=== PATIENT | female | born 1985 | race African-American/Black ===

== ENCOUNTER 2017-07-15 05:25 | Day surgery (SDC) | payer MEDICARE, MEDICAID ==
[~2017-07-15] VITALS: Ht 172.7 cm; Wt 107.5 kg
[~2017-07-15 05:25] MED LIST: BENZ0.5T3 PO; MIRT15TA6 PO; OXCA300T31 PO; POTA10CA42 PO; RISP0.2514 PO; TRAZ-129 PO; XANAX; [UNRECOGNIZED DRUG - OTHER]
[2017-07-15] MEDS ORDERED: ARIP30TA2 INJ (05:54)
[2017-07-15] MEDS ORDERED: ARIP400S3 IM (05:55)
[2017-07-15] MEDS ORDERED: LACTATED RINGERS 1,000 ML IV SCH (06:00)
[2017-07-15 06:27] LABS: BASOPHILS % 0.1 % (0.0-2.0); EOSINOPHILS % 4.3 % (0.0-5.0); HEMATOCRIT. 34.3 % (36.0-48.0); HEMOGLOBIN. 11.7 g/dL (12.0-16.0); LYMPHOCYTES % 32.4 % (20.0-50.0); MEAN CORPUSCULAR HEMOGLOBIN 27.8 pg (28.0-32.0); MEAN CORPUSCULAR VOLUME 81.7 fL (81.0-99.0); MEAN PLATELET VOLUME 7.8 fl (7.4-10.4); NEUTROPHILS % 54.2 % (40.0-76.0); PLATELET 331 x1000/uL (130-400); RED BLOOD CELL COUNT 4.19 mill/uL (4.2-5.4)
[2017-07-15 06:30] LABS: CLARITY URINE CLEAR (CLEAR); COLOR URINE YELLOW (YELLOW); KETONES URINE NEGATIVE (NEGATIVE); LEUKOCYTE ESTERASE URINE NEGATIVE (NEGATIVE); NITRITE URINE NEGATIVE (NEGATIVE); OCCULT BLOOD URINE NEGATIVE (NEGATIVE); PROTEIN URINE NEGATIVE (NEGATIVE); SPECIFIC GRAVITY URINE 1.017 (1.005-1.030); UROBILINOGEN URINE 0.2 E.U./dL (0.2-1.0)
[2017-07-15 06:36] LABS: UCG SCREEN POSITIVE
[2017-07-15] MEDS ORDERED: GLYCOPYRROLATE 0.2 MG/ML 2ML VIAL ONE (07:43)
[2017-07-15] MEDS ORDERED: SUCCINYLCHOLINE CHLORIDE 200MG/10ML VIAL IV ONE (07:43)
[2017-07-15] MEDS ORDERED: MIDAZOLAM HCL 2 MG/2 ML VIAL ONE (07:43)
[2017-07-15] MEDS ORDERED: PROPOFOL 200MG/20ML VIAL IV ONE (07:43)
[2017-07-15] MEDS ORDERED: CEFAZOLIN SODIUM 1000MG/VIAL ONE (07:43)
[2017-07-15] MEDS ORDERED: ROCURONIUM BROMIDE 10MG/ML VIAL 5ML IV ONE (07:43)
[2017-07-15] MEDS ORDERED: FENTANYL CITRATE/PF 50MCG/ML 2ML VIAL ONE ×2 (07:43→08:11)
[2017-07-15] MEDS ORDERED: LIDOCAINE HCL/PF 1% 10 MG/ML 5ML VIAL ONE (07:43)
[2017-07-15] MEDS ORDERED: ACETAMINOPHEN 325MG TABLET PO PRN (07:45)
[2017-07-15] MEDS ORDERED: METOCLOPRAMIDE HCL 10MG/2ML VIAL ONE (07:47)
[2017-07-15] MEDS ORDERED: ONDANSETRON HCL 4MG/2ML VIAL ONE (07:47)
[2017-07-15] MEDS ORDERED: OXYTOCIN 10 UNITS/ML 1ML ONE (08:11)
[2017-07-15] MEDS ORDERED: SODIUM CHLORIDE 0.9% 1,000 ML IV ONE (13:29)
[2017-07-15] MEDS ORDERED: ONDANSETRON HCL 4MG/2ML VIAL IV PRN (13:30)
[2017-07-15] MEDS ORDERED: HYDROMORPHONE HCL/PF 2MG/ML CPJ IV PRN (13:30)
== END 2017-07-15 09:55 | disposition home or self-care (01) ==
LOC: OR 05:25
PROVIDERS: ATTEND Obstetrics & Gynecology Obstetrics
DX: O02.1 Missed abortion (principal)
CPT/HCPCS: 36415; 59812; 81003; 81025; 85025; 86850; 86900; 86901; 88305; J0330; J0690; J2250; J2405; J2765; J3010; J3490; J7120; J2704

== ENCOUNTER 2020-02-29 08:56 | Emergency (ER) | payer MEDICARE, MEDICAID ==
[~2020-02-29] VITALS: Ht 172.7 cm; Wt 117.0 kg
[~2020-02-29 08:56] MED LIST changes: +ARIP400S3 IM; -BENZ0.5T3 PO; +BENZ0.5T43 PO; -TRAZ-129 PO; +TRAZ-251 PO
[2020-02-29 12:27] VITALS: BP 173/102
== END 2020-02-29 12:32 | disposition home or self-care (01) ==
LOC: ER 09:10
DX: I10 Essential (primary) hypertension (principal)
CPT/HCPCS: 93005; 99281; 99283

== ENCOUNTER 2022-07-31 15:48 | Emergency (ER) | payer MEDICARE, MEDICAID ==
[~2022-07-31] VITALS: Ht 172.7 cm; Wt 111.0 kg
[~2022-07-31 15:48] MED LIST changes: +MIRT-89 PO; -MIRT15TA6 PO; -POTA10CA42 PO; +POTA10CA43 PO
[2022-07-31 16:04] VITALS: BP 183/109
[2022-07-31] MEDS ORDERED: ACETAMINOPHEN 325MG TABLET PO STA (16:40)
[2022-07-31] MEDS ORDERED: IBUP-2029 MT (18:49)
== END 2022-07-31 19:09 | disposition home or self-care (01) ==
LOC: ER 15:48
DX: R51.9 Headache, unspecified (principal); F41.9 Anxiety disorder, unspecified; I10 Essential (primary) hypertension; F12.90 Cannabis use, unspecified, uncomplicated
CPT/HCPCS: 81025; 99284

== ENCOUNTER 2023-01-11 13:24 | Emergency (ER) | payer MEDICARE, MEDICAID ==
[~2023-01-11] VITALS: Ht 172.7 cm; Wt 66.0 kg
[~2023-01-11 13:24] MED LIST changes: +BENZ0.5T3 PO; -BENZ0.5T43 PO; +IBUP-2029 MT; -POTA10CA43 PO; +POTA10CA83 PO
[2023-01-11 13:30] VITALS: BP 174/105; PULSE 87; RESP 16; TEMP 98.7; O2SAT 100
[2023-01-11] MEDS ORDERED: ONDANSETRON 4MG ODT PO ONE (15:30)
[2023-01-11 15:52] LABS: BASOPHILS % 1.7 % (0.0-2.0); DIFFERENTIAL COMMENT 0; EOSINOPHILS % 2.5 % (0.0-5.0); HEMATOCRIT. 30.9 % (36.0-48.0); LYMPHOCYTES % 42.3 % (20.0-50.0); MEAN CORPUSCULAR HGB CONC 32.5 g/dL (31.0-37.0); MEAN CORPUSCULAR VOLUME 73.8 fL (81.0-99.0); MEAN PLATELET VOLUME 8.2 fl (7.4-10.4); MONOCYTES % 8.9 % (2.0-8.0); NEUTROPHILS % 44.6 % (40.0-76.0); PLATELET 304 x1000/uL (130-400); RED BLOOD CELL COUNT 4.19 mill/uL (4.2-5.4); RED CELL DISTRIBUTION WIDTH 21.3 % (11.6-14.6); WHITE BLOOD COUNT 6.2 x1000/uL (4.5-11.0)
[2023-01-11 15:57] LABS: INDEX HEMOLYSI 1 (1-3); INDEX ICTERIC 1 (1-4); INDEX LIPEMIC 1 (1-3); POTASSIUM 3.9 mEq/L (3.5-5.1); SODIUM 141 mEq/L (136-145)
[2023-01-11 16:06] LABS: ALANINE AMINOTRANSFERASE 15 IU/L (13-61); ALBUMIN 3.4 g/dL (3.4-5.0); ASPARTATE AMINOTRANSFERASE 12 IU/L (15-37); BILIRUBIN TOTAL 0.4 mg/dL (0.1-1.0); CREATININE 0.7 mg/dL (0.6-1.3); GLUCOSE 75 mg/dL (70-105); NT PRO B-TYPE NATRIURETIC PEP 140 pg/mL (5-125); PROTEIN TOTAL 7.2 g/dL (6.0-8.3); TROPONIN I HIGH SENSITIVITY 20 ng/L (<54); UREA NITROGEN BLOOD 10 mg/dL (7-21)
[2023-01-11 16:23] LABS: CARBON DIOXIDE 25 mEq/L (21-32); CHLORIDE 113 mEq/L (98-107)
[2023-01-11] MEDS ORDERED: CARB100C9 MT (23:07)
[2023-01-11] MEDS ORDERED: KETOROLAC 30MG/ML VIAL IM ONE (23:15)
[2023-01-11] MEDS ORDERED: CARBAMAZEPINE 100MG TABLET CHEW PO ONE (23:15)
== END 2023-01-11 23:16 | disposition home or self-care (01) ==
LOC: ER 13:24
DX: G50.0 Trigeminal neuralgia (principal); R51.9 Headache, unspecified; R07.89 Other chest pain; R11.2 Nausea with vomiting, unspecified; F12.10 Cannabis abuse, uncomplicated; I10 Essential (primary) hypertension; F41.9 Anxiety disorder, unspecified
CPT/HCPCS: 36415; 71045; 80053; 81025; 83880; 84484; 85025; 99284

== ENCOUNTER 2023-06-26 00:22 | Emergency (ER) | payer MEDICARE, MEDICAID ==
[~2023-06-26] VITALS: Ht 172.7 cm; Wt 93.1 kg
[~2023-06-26 00:22] MED LIST changes: +CARB100C9 MT
[2023-06-26 00:38] VITALS: BP 187/114; PULSE 94; RESP 17; TEMP 98.5; O2SAT 98
[2023-06-26 06:52] LABS: HCG SCREEN NEGATIVE
== END 2023-06-26 07:36 | disposition home or self-care (01) ==
LOC: ER 00:22
DX: R07.89 Other chest pain (principal); Z59.00 Homelessness unspecified; F12.10 Cannabis abuse, uncomplicated; I10 Essential (primary) hypertension; Z79.899 Other long term (current) drug therapy
CPT/HCPCS: 71045; 81025; 84703; 93005; 99285

== ENCOUNTER 2024-09-29 10:49 | Emergency (ER) | payer OTHER, MEDICAID ==
[~2024-09-29] VITALS: Ht 172.7 cm; Wt 80.0 kg
[~2024-09-29 10:49] MED LIST changes: -POTA10CA83 PO; +POTA10CA93 PO
[2024-09-29 10:50] VITALS: O2SAT 100
[2024-09-29 11:00] VITALS: BP 168/87; PULSE 89; RESP 14; TEMP 36.7; O2SAT 99
[2024-09-29 12:05] LABS: BASOPHILS % 2.7 % (0.0-2.0); DIFFERENTIAL COMMENT 1; HEMATOCRIT. 30.7 % (36.0-48.0); HEMOGLOBIN. 9.9 g/dL (12.0-16.0); LYMPHOCYTES % 29.5 % (20.0-50.0); MEAN CORPUSCULAR HEMOGLOBIN 23.6 pg (28.0-32.0); MEAN CORPUSCULAR HGB CONC 32.3 g/dL (31.0-37.0); MEAN CORPUSCULAR VOLUME 73.2 fL (81.0-99.0); MEAN PLATELET VOLUME 8.5 fl (7.4-10.4); NEUTROPHILS % 59.8 % (40.0-76.0); PLATELET 177 x1000/uL (130-400); RED BLOOD CELL COUNT 4.19 mill/uL (4.2-5.4); RED CELL DISTRIBUTION WIDTH 22.5 % (11.6-14.6); WHITE BLOOD COUNT 5.2 x1000/uL (4.5-11.0)
[2024-09-29 12:06] LABS: ADD RBC MORPHOLOGY YES
[2024-09-29 12:27] LABS: ANISOCYTOSIS 3+; MICROCYTOSIS 2+; PLATELET ESTIMATE NORMAL
[2024-09-29 13:02] LABS: CHLORIDE 107 mEq/L (98-107); POTASSIUM 3.9 mEq/L (3.5-5.1); SODIUM 140 mEq/L (136-145)
[2024-09-29 13:03] LABS: CARBON DIOXIDE 29 mEq/L (21-32)
[2024-09-29 13:04] LABS: CALCIUM 8.9 mg/dL (8.7-10.4)
[2024-09-29 13:05] LABS: HCG SCREEN NEGATIVE
[2024-09-29 13:08] LABS: CREATININE 0.9 mg/dL (0.6-1.0); GLUCOSE 111 mg/dL (70-105); UREA NITROGEN BLOOD 10 mg/dL (9-23)
== END 2024-09-29 12:56 | disposition left against medical advice (07) ==
LOC: ER 10:49
DX: N93.9 Abnormal uterine and vaginal bleeding, unspecified (principal); F12.10 Cannabis abuse, uncomplicated; I10 Essential (primary) hypertension; F41.9 Anxiety disorder, unspecified; Z79.899 Other long term (current) drug therapy; Z98.890 Other specified postprocedural states
CPT/HCPCS: 36415; 80048; 84703; 85025; 86850; 86900; 99283